=== PATIENT | female | born 1975 | race Caucasian/White ===

== ENCOUNTER → 2017-08-06 | Outpatient (CLI) | payer BC ==
--- NOTE | 2017-08-07 12:36 | MAM ---
EXAM DESCRIPTION: 3D Screening BILATERAL CLINICAL HISTORY: 41 yearsFemaleENCOUNTER FOR SCREENING MAMMO FOR MALIGNANT NEOPLASM OF BREAST . No complaints. No family history of breast cancer. Premenopausal.. COMPARISON: None. No prior reports available. TECHNIQUE: Bilateral CC and MLO projection full-field images, 3-D tomosynthesis digital mammographic technique. Also bilateral synthesized CC/ MLO full-field images. CAD not utilized. FINDINGS: The breast parenchymal density pattern is: Heterogeneously dense breast tissue, which may obscure small masses. No skin thickening or nipple retraction focal asymmetry in the anterior third of the upper-outer quadrant of the left breast at the 200 clock position. Approximately 4 cm from the nipple and 2 cm from the skin surface. Not associated with microcalcifications. No focal, stellate mass or density, and no suspicious microcalcifications lateral breast. No focal asymmetry in the right breast. IMPRESSION: BI-RADS CATEGORY: 0 - INCOMPLETE- Need additional imaging evaluation. FOLLOW-UP: Recall for additional imaging: Targeted ultrasound of the region of interest in the upper outer quadrant of the anterior left breast.. Written communication concerning the FINDINGS and IMPRESSION will be mailed to the patient and referring health care provider. Imaging Electronically signed by: Silvestre Cooper MD 08/07/2017 12:35 PM CDT
== END ==
LOC: MAMMO 07:49
PROVIDERS: ATTEND Obstetrics & Gynecology
DX: Z12.31 Encounter for screening mammogram for malignant neoplasm of breast (principal)
CPT/HCPCS: 77063; G0202